=== PATIENT | female | born 1970 | race Caucasian/White ===

== ENCOUNTER 2021-01-07 15:45 | Emergency (ER) | payer BC, OTHER ==
[~2021-01-07] VITALS: Ht 165.1 cm; Wt 88.0 kg
[~2021-01-07 15:45] MED LIST: AMITRIPTYLINE H25 M2 PO; BACTRIM DS TAB1 EACH PO; CLEOCIN HCL150 MG PO; CLONAZEPAM PO; DOXYCYCLINE 10100 MG PO; IBUPROFEN 800800 M1 PO; MIDRIN CAPSULE1 CAP PO; SKELAXIN; SKELAXIN 800 M800 M1 PO; TRAMADOL 50 MG50 MG PO; ULTRAM ER100 MG PO; VICODIN; ZOMIG5 MG PO
[2021-01-07] MEDS ORDERED: LEXAPRO 10 MG T10 M2 (15:58)
[2021-01-07] MEDS ORDERED: MICARDIS 20MG T20 M1 PO (15:59)
[2021-01-07] MEDS ORDERED: DOXYCYCLINE 10100 MG PO (18:07)
[2021-01-07] MEDS ORDERED: NABUMETONE 750750 M1 PO (18:07)
[2021-01-07] MEDS ORDERED: VENTOLIN HFA 1818 GM INH (18:07)
[2021-01-07 18:17] VITALS: BP 140/78
== END 2021-01-07 18:17 | disposition home or self-care (01) ==
LOC: M.ERS 15:45
DX: S81.031A Puncture wound without foreign body, right knee, initial encounter (principal); S60.212A Contusion of left wrist, initial encounter; J20.9 Acute bronchitis, unspecified; G43.909 Migraine, unspecified, not intractable, without status migrainosus; I10 Essential (primary) hypertension; Z88.1 Allergy status to other antibiotic agents; Z88.0 Allergy status to penicillin; Z88.5 Allergy status to narcotic agent; Z90.711 Acquired absence of uterus with remaining cervical stump; Z87.440 Personal history of urinary (tract) infections; W54.0XXA Bitten by dog, initial encounter; Y93.89 Activity, other specified; Y92.89 Other specified places as the place of occurrence of the external cause; Y99.8 Other external cause status